=== PATIENT | male | born 1990 | race Caucasian/White ===

== ENCOUNTER 2021-10-05 20:05 | Emergency (ER) | payer SELFPAY ==
[~2021-10-05] VITALS: Ht 185.4 cm; Wt 84.1 kg
[~2021-10-05 20:05] MED LIST: CITALOPRAM20 MG PO; NO HOME MEDICATIONS
[2021-10-05] MEDS ORDERED: CLEOCIN HCL300 MG PO (22:35)
[2021-10-05 22:50] VITALS: BP 124/78; PULSE 76
== END 2021-10-05 22:50 | disposition home or self-care (01) ==
LOC: COL.ER 20:05
DX: K04.7 Periapical abscess without sinus (principal)

== ENCOUNTER 2022-08-02 08:08 | Emergency (ER) | payer SELFPAY ==
[~2022-08-02] VITALS: Ht 182.9 cm; Wt 92.3 kg
[~2022-08-02 08:08] MED LIST changes: +CLEOCIN HCL300 MG PO
[2022-08-02 08:13] VITALS: BP 129/86; PULSE 73; TEMP 97.8
[2022-08-02] MEDS ORDERED: ROBAXIN 75750 MG/TAB PO (08:32)
== END 2022-08-02 09:10 | disposition home or self-care (01) ==
LOC: COL.ER 08:08
DX: M43.6 Torticollis (principal); F17.210 Nicotine dependence, cigarettes, uncomplicated
CPT/HCPCS: J1885